=== PATIENT | female | born 1985 | race Caucasian/White ===

== ENCOUNTER 2016-06-19 13:41 | Observation (INO) | payer OTHER ==
[~2016-06-19 13:41] MED LIST: IBUP-1547 PO; PNV1TABL54 PO
[2016-06-19 14:12] VITALS: BP 117/57
[2016-06-19] MEDS ORDERED: RINGERS SOLUTION,LACTATED 1,000 ML IV ONE (15:00)
[2016-06-19] MEDS ORDERED: NIFEdipine 10 MG CAPSULE PO ONE (17:00)
[2016-06-19] MEDS: RINGERS SOLUTION,LACTATED 1,000 ML IV SCH ×2 (17:18→22:36)
[2016-06-20] MEDS: RINGERS SOLUTION,LACTATED 1,000 ML IV SCH (06:55)
[2016-06-20] MEDS ORDERED: MORPHINE SULFATE/PF 0.5 MG/ML 10 ML AMP ONE (10:27)
[2016-06-20] MEDS ORDERED: RINGERS SOLUTION,LACTATED 1,000 ML IV ONE (10:27)
[2016-06-20] MEDS ORDERED: FentaNYL CITRATE-PF 100 MCG/2 ML VIAL ONE (10:27)
[2016-06-20] MEDS ORDERED: METOCLOPRAMIDE HCL 5 MG/ML 2 ML VIAL IVP ONE (10:30)
[2016-06-20] MEDS ORDERED: CITRIC ACID/SODIUM CITRATE 30 ML SOLUTION UDCUP PO ONE (10:30)
[2016-06-20] MEDS ORDERED: NIFEdipine 10 MG CAPSULE PO ONE (10:45)
== END 2016-06-20 12:30 | disposition home or self-care (01) ==
LOC: OBSVTOIN 13:41 → INTOOBSV 13:41 → 4S 13:41 → UNDODISOB 06-20 12:30
PROVIDERS: ADMIT Obstetrics & Gynecology; ATTEND Obstetrics & Gynecology
DX: O26.893 Other specified pregnancy related conditions, third trimester (principal); R10.9 Unspecified abdominal pain; Z3A.00 Weeks of gestation of pregnancy not specified
CPT/HCPCS: 59025; 96360; 96361 ×2; G0378 ×2; J2274; J3010; J7120 ×2

== ENCOUNTER 2016-06-24 07:04 | Inpatient (IN) | payer OTHER ==
[~2016-06-24] VITALS: Ht 159 cm; Wt 87.1 kg
[~2016-06-24 07:04] MED LIST changes: +DEXAMETHASONE SOD PHOS 4 MG/ML VIAL IVP ONE; +EPHEDrine SULFATE 50 MG/ML VIAL IM ONE; +GLYCOPYRROLATE 0.2 MG/ML VIAL IM ONE; -IBUP-1547 PO; +ONDANSETRON HCL 4 MG/2 ML VIAL IVP ONE; +OXYTOCIN 10 UNITS/ML VIAL IM ONE
[2016-06-24] MEDS ORDERED: NIFE10 PO (07:23)
[2016-06-24 07:24] VITALS: BP 120/54
[2016-06-24] MEDS ORDERED: RINGERS SOLUTION,LACTATED 1,000 ML IV ONE (10:06)
[2016-06-24] MEDS ORDERED: CITRIC ACID/SODIUM CITRATE 30 ML SOLUTION UDCUP PO ONE (10:15)
[2016-06-24] MEDS ORDERED: METOCLOPRAMIDE HCL 5 MG/ML 2 ML VIAL IVP ONE (10:15)
[2016-06-24] MEDS ORDERED: MORPHINE SULFATE/PF 1 MG/ML 10 ML AMP ONE (10:30)
[2016-06-24 11:01] LABS: BASOPHILS # (AUTO) 0.03 K/uL (0.00-0.20); BASOPHILS % (AUTO) 0.3 % (0.0-2.0); EOSINOPHILS # (AUTO) 0.06 K/uL (0.00-0.70); EOSINOPHILS % (AUTO) 0.57 % (1.0-6.0); HEMOGLOBIN 11.4 g/dL (12.0-16.0); LYMPHOCYTES # (AUTO) 1.6 K/uL (1.0-4.8); LYMPHOCYTES % (AUTO) 15.2 % (22.0-44.0); MEAN CORPUSCULAR HEMOGLOBIN 28.6 pg (26.0-34.0); MEAN CORPUSCULAR HGB CONC 33.5 G/dL (31.0-37.0); MEAN CORPUSCULAR VOLUME 85 fL (80-100); MONOCYTES # (AUTO) 0.5 K/uL (0.1-1.0); MONOCYTES % (AUTO) 4.9 % (2.0-9.0); NEUTROPHILS # (AUTO) 8.4 K/uL (1.8-7.7); NEUTROPHILS % (AUTO) 79.1 % (40.0-70.0); RED BLOOD CELL COUNT(AUTO) 3.99 MIL/uL (4.00-5.20); RED CELL DISTRIBUTION WIDTH 14.8 % (11.5-14.5); WHITE BLOOD COUNT (AUTO) 10.6 K/uL (4.5-11.0)
[2016-06-24] MEDS ORDERED: DiphenhydrAMINE HCL 50 MG/ML VIAL IVP PRN (12:45)
[2016-06-24] MEDS ORDERED: NALOXONE HCL 0.4 MG/ML VIAL IVP PRN (12:45)
[2016-06-24] MEDS ORDERED: MEPERIDINE-PF 25 MG/ML SYRINGE IVP PRN (12:45)
[2016-06-24] MEDS ORDERED: NALBUPHINE HCL 10 MG/ML VIAL IVP PRN ×2 (12:45)
[2016-06-24] MEDS ORDERED: ONDANSETRON HCL 4 MG/2 ML VIAL IVP PRN (12:45)
[2016-06-24] MEDS ORDERED: FentaNYL CITRATE-PF 100 MCG/2 ML VIAL IVP PRN (12:45)
[2016-06-24] MEDS ORDERED: OXYGEN THERAPY IH SCH ×3 (12:45)
[2016-06-24] MEDS ORDERED: LANOLIN 7 GM OINTMENT TP PRN (13:15)
[2016-06-24] MEDS ORDERED: ACETAMINOPHEN/CODEINE 300-30 MG TABLET PO PRN ×2 (13:15)
[2016-06-24] MEDS ORDERED: DEXTROSE 5%-0.45% SODIUM CHL 1,000 ML IV ONE (13:33)
[2016-06-24] MEDS ORDERED: NALBUPHINE HCL 10 MG/ML VIAL ONE (13:33)
[2016-06-24] MEDS: DEXTROSE 5%-0.45% SODIUM CHL 1,000 ML IV SCH ×4 (13:38→23:58)
[2016-06-24] MEDS: NALBUPHINE HCL 10 MG/ML VIAL IVP SCH ×2 (14:32→20:21)
[2016-06-25] MEDS: NALBUPHINE HCL 10 MG/ML VIAL IVP SCH ×2 (02:33→08:40)
[2016-06-25] MEDS: IBUPROFEN 800 MG TABLET PO SCH ×3 (08:40→20:52)
[2016-06-25] MEDS: MAGNESIUM HYDROXIDE SUSPENSION 30 ML UDCUP PO SCH ×2 (09:00→20:53)
[2016-06-26] MEDS: IBUPROFEN 800 MG TABLET PO SCH ×4 (03:00→19:37)
[2016-06-26] MEDS: MAGNESIUM HYDROXIDE SUSPENSION 30 ML UDCUP PO SCH (08:46)
[2016-06-27] MEDS: IBUPROFEN 800 MG TABLET PO SCH ×2 (01:43→08:31)
[2016-06-27] MEDS ORDERED: IBUP-1547 PO (09:51)
[2016-06-27] MEDS ORDERED: FentaNYL CITRATE-PF 100 MCG/2 ML VIAL IVP ONE (14:14)
== END 2016-06-27 14:15 | disposition home or self-care (01) | DRG 766 ==
LOC: 4S 07:04 → OBSVTOIN 07:04 → 4S 14:45
PROVIDERS: ADMIT Obstetrics & Gynecology; ATTEND Obstetrics & Gynecology
PROC: 10D00Z1 Extraction of Products of Conception, Low, Open Approach (ICD-10-PCS; principal; 2016-06-24)
DX: O34.219 Maternal care for unspecified type scar from previous cesarean delivery (principal); Z3A.37 37 weeks gestation of pregnancy; Z37.0 Single live birth
CPT/HCPCS: 86850; 86900; 86901; 87081; J0690; J1100; J2300; J2405; J2590; J2765; J3010; J3490; J7120